=== PATIENT | male | born 1975 | race Caucasian/White ===

== ENCOUNTER → 2019-05-05 | Outpatient (CLI) | payer OTHER ==
[~2019-05-05] MED LIST: COLC.6 PO; CRUTCH3 USE; HYDACE5 PO; NAPR500 PO
[2019-05-05 15:47] LABS: BASOPHILS ABSOLUTE AUTO 0.04 K/mm3 (0.00-0.23); BASOPHILS PERCENT AUTO 0 % (0-2); EOSINOPHILS ABSOLUTE AUTO 0.15 K/mm3 (0.00-0.68); EOSINOPHILS PERCENT AUTO 2 % (0-6); Hematocrit 43.1 % (37.0-53.0); Hemoglobin 14.2 g/dL (13.5-17.5); IMMATURE GRAN ABSOLUTE AUTO 0.02 K/mm3 (0.00-0.10); IMMATURE GRAN PERCENT AUTO 0 % (0-1); LYMPHOCYTES ABSOLUTE AUTO 1.18 K/mm3 (0.84-5.20); LYMPHOCYTES PERCENT AUTO 13 % (21-46); MONOCYTES ABSOLUTE AUTO 1.04 K/mm3 (0.16-1.47); MONOCYTES PERCENT AUTO 11 % (4-13); Mean Corpuscular HGB 29.8 pg (26.0-34.0); Mean Corpuscular HGB Conc 32.9 g/dL (31.5-36.5); Mean Corpuscular Volume 91 fL (80-100); Mean Platelet Volume 10.3 fL (9.1-12.4); NEUTROPHILS PERCENT AUTO 74 % (41-73); Platelet Count 304 K/mm3 (150-400); RDW Coefficient Variation 12.7 % (11.7-14.2); Red Blood Cell Count 4.76 M/mm3 (4.30-5.90); White Blood Cell Count 9.33 K/mm3 (4.00-11.30)
[2019-05-05 15:54] LABS: Anion Gap 4 mmol/L (6-16); Blood Urea Nitrogen 11 mg/dL (8-24); Bun/Creatinine Ratio 11.1 (12.0-20.0); CO2, Blood 30 mmol/L (21-32); Chloride, Blood 103 mmol/L (98-108); Creatinine, Blood 0.99 mg/dL (0.60-1.20); Glomerular Filtration Rate >60 (60-); Glucose, Blood 84 mg/dL (70-99); Potassium, Blood 3.9 mmol/L (3.5-5.5); Sodium, Blood 137 mmol/L (136-145); Uric Acid, Blood 4.5 mg/dL (3.5-7.2)
== END | disposition home or self-care (01) ==
LOC: LAB SHORT 15:42 → LAB EV 15:42
PROVIDERS: Family Medicine
DX: M10.9 Gout, unspecified (principal)
CPT/HCPCS: 80048; 84550; 85025

== ENCOUNTER 2023-09-03 20:48 | Inpatient (IN) | payer OTHER ==
[~2023-09-03] VITALS: Ht 190.5 cm; Wt 99.1 kg
[2023-09-03 21:39] LABS: BASOPHILS ABSOLUTE AUTO 0.02 K/mm3 (0.00-0.23); BASOPHILS PERCENT AUTO 0 % (0-2); EOSINOPHILS ABSOLUTE AUTO 0.08 K/mm3 (0.00-0.68); EOSINOPHILS PERCENT AUTO 1 % (0-6); Hematocrit 37.3 % (37.0-53.0); Hemoglobin 12.4 g/dL (13.5-17.5); IMMATURE GRAN ABSOLUTE AUTO 0.01 K/mm3 (0.00-0.10); IMMATURE GRAN PERCENT AUTO 0 % (0-1); LYMPHOCYTES ABSOLUTE AUTO 1.09 K/mm3 (0.84-5.20); LYMPHOCYTES PERCENT AUTO 13 % (21-46); MONOCYTES ABSOLUTE AUTO 0.84 K/mm3 (0.16-1.47); MONOCYTES PERCENT AUTO 10 % (4-13); Mean Corpuscular HGB Conc 33.2 g/dL (31.5-36.5); Mean Corpuscular Volume 87 fL (80-100); Mean Platelet Volume 10.2 fL (9.1-12.4); NEUTROPHILS ABSOLUTE AUTO 6.54 K/mm3 (1.96-9.15); NEUTROPHILS PERCENT AUTO 76 % (41-73); Platelet Count 253 K/mm3 (150-400); RDW Coefficient Variation 13.7 % (11.7-14.2); RDW Standard Deviation 44.1 fL (35.1-46.3); Red Blood Cell Count 4.27 M/mm3 (4.30-5.90); White Blood Cell Count 8.58 K/mm3 (4.00-11.30)
[2023-09-03 21:58] LABS: Albumin, Blood 3.8 g/dL (3.4-5.0); Bilirubin, Total 0.8 mg/dL (0.1-1.0); Calcium, Blood 8.8 mg/dL (8.5-10.1); Creatinine, Blood 0.65 mg/dL (0.60-1.20); Total Protein, Blood 7.8 g/dL (6.4-8.2)
[2023-09-04] MEDS ORDERED: Amoxicillin/Clavulanate K 875 MG Tab PO ONE (02:05)
[2023-09-04] MEDS ORDERED: AMOCLA875 PO (02:25)
[2023-09-04] MEDS ORDERED: Acetaminophen 650 MG Supp PR PRN (03:45)
[2023-09-04] MEDS ORDERED: Acetaminophen 325 MG TABLET PO PRN (03:45)
[2023-09-04] MEDS ORDERED: Ondansetron HCl 2 MG / ML 2ML Vial IV PRN (03:50)
[2023-09-04] MEDS ORDERED: Potassium Chloride 40 MEQ in NS 250 ML IV ONE (03:55)
[2023-09-04] MEDS ORDERED: Lactated Ringer's 1,000 ML IV SCH (04:00)
[2023-09-04] MEDS ORDERED: NS 250 ML IV PRN (04:30)
[2023-09-04 05:26] VITALS: BP 138/80
[2023-09-04 05:56] LABS: U Amphetamine Screen DETECTED; U Barbituate Screen Not Detected; U Benzodiazapine Screen Not Detected; U Buprenorphine Screen Not Detected; U Cannabinoids Screen Not Detected; U Cocaine Screen Not Detected; U Methadone Screen Not Detected; U Methamphetamine Screen DETECTED; U Opiates Screen Not Detected; U Oxycodone Screen Not Detected; U Phencyclidine Screen Not Detected
[2023-09-04 06:23] LABS: BASOPHILS ABSOLUTE AUTO 0.02 K/mm3 (0.00-0.23); BASOPHILS PERCENT AUTO 0 % (0-2); EOSINOPHILS ABSOLUTE AUTO 0.02 K/mm3 (0.00-0.68); EOSINOPHILS PERCENT AUTO 0 % (0-6); Hematocrit 33.6 % (37.0-53.0); Hemoglobin 11.2 g/dL (13.5-17.5); IMMATURE GRAN ABSOLUTE AUTO 0.04 K/mm3 (0.00-0.10); IMMATURE GRAN PERCENT AUTO 0 % (0-1); LYMPHOCYTES ABSOLUTE AUTO 1.22 K/mm3 (0.84-5.20); LYMPHOCYTES PERCENT AUTO 12 % (21-46); MONOCYTES ABSOLUTE AUTO 1.06 K/mm3 (0.16-1.47); MONOCYTES PERCENT AUTO 11 % (4-13); Mean Corpuscular HGB 28.9 pg (26.0-34.0); Mean Corpuscular HGB Conc 33.3 g/dL (31.5-36.5); Mean Corpuscular Volume 87 fL (80-100); Mean Platelet Volume 10.5 fL (9.1-12.4); NEUTROPHILS ABSOLUTE AUTO 7.72 K/mm3 (1.96-9.15); NEUTROPHILS PERCENT AUTO 77 % (41-73); Platelet Count 242 K/mm3 (150-400); RDW Coefficient Variation 13.6 % (11.7-14.2); RDW Standard Deviation 42.5 fL (35.1-46.3); Red Blood Cell Count 3.88 M/mm3 (4.30-5.90); White Blood Cell Count 10.08 K/mm3 (4.00-11.30)
[2023-09-04 06:44] LABS: Albumin, Blood 3.3 g/dL (3.4-5.0); Albumin/Globulin Ratio 0.9 (0.8-1.8); Bilirubin, Total 1.2 mg/dL (0.1-1.0); Bun/Creatinine Ratio 13.2 (12.0-20.0); Calcium, Blood 8.4 mg/dL (8.5-10.1); Creatinine, Blood 0.53 mg/dL (0.60-1.20); Globulin, Blood 3.6 g/dL (2.2-4.0); Magnesium, Blood 1.9 mg/dL (1.6-2.4); Potassium, Blood 2.8 mmol/L (3.5-5.5); Total Protein, Blood 6.9 g/dL (6.4-8.2)
--- NOTE | 2023-09-04 07:12 | NUR ---
ASSUMED CARE: PT RESTING IN BED AT THIS TIME. SWELLING NOTED TO LEFT FACE. IV POTASSIUM INFUSING. CALL LIGHT IN REACH. DENIES NEEDS OR CONCERNS AT THIS TIME.
--- NOTE | 2023-09-04 07:14 | NUR ---
SHIFT SUMMARY NOC PT A/O X 4. PLEASANT AND COOPERATIVE WITH CARE. VSS. ADMIT FROM ED WITH DX OF COPD EXACERBATION. PT CAME UP ON O2 2.5L/NC AND IS RA BASELINE. PT USES CPAP AT NIGHT WITH 4L BLEED IN. PT ON BEDREST DUE TO SEVERE DYSPNEA WITH MOVEMENT. PT HAS STAGE ON PI ON COCCYX AND DIABETIC FOOT ULCER THAT IS SCABBED ON L FOOT, BOTH ARE COVERED WITH MEPILEX C/D/I. HEEL PROTECTORS ON FOR PREVENTION OF PI. PT ON TELE SINUS RHYTHM @ 84 BPM. PT CURRENTLY RESTING WITH BED IN LOWEST POSITION, AND CALL LIGHT WITHIN REACH.
--- NOTE | 2023-09-04 07:20 | NUR ---
SHIFT SUMMARY NOC ADMIT FROM ED WITH ABCESS IN LEFT SIDE OF FACE. PT A/O X 4, INDEPENDENT/CONTINENT, ON RA. HAS TOX UA PENDING. PT MEDICATED FOR PAIN AND LOW GRADE FEVER WITH PO TYLENOL, NO SWALLOWING ISSUES NOTED. PT RECEIVING IV ABX FOR INFECTION, AND KCL 40 MQ IV X 1 FOR K 3.0. LR @ 100 ML/HR ORDERED. PT CURRENTLY RESTING WITH BED IN LOWEST POSITION, AND CALL LIGHT WITHIN REACH.
[2023-09-04] MEDS ORDERED: Potassium Chloride 20 MEQ TabCR PO ONE (07:45)
[2023-09-04] MEDS ORDERED: Clindamycin 600mg in D5W 50 ML IV SCH (08:00)
--- NOTE | 2023-09-04 08:04 | NUR ---
CALL TO DR HARDEN TO VERIFY THAT HE WANTED PO POTASSIUM WELL IV POTASSIUM. DR RIVERA. ALSO RECIEVED DIET ORDER. NO FURTHER NEEDS OR CONCERNS AT THIS TIME.
[2023-09-04] MEDS ORDERED: Lactobacil 2-S.Thermo-Bifido 1 1 Cap PO SCH (09:00)
[2023-09-04] MEDS ORDERED: Enoxaparin 40 MG/0.4 ML SYR SC SCH (09:00)
[2023-09-04] MEDS ORDERED: Pantoprazole Sodium 20 MG Tab PO SCH (10:00)
[2023-09-04] MEDS ORDERED: MethylPREDNISolone Sod Succ 125 MG Vial IV ONE (10:00)
[2023-09-04] MEDS ORDERED: Ampicillin Sod/Sulbactam Sod 3 GM in NS 100 ML IV SCH (10:00)
[2023-09-04 10:05] VITALS: BP 108/62
[2023-09-04 15:05] VITALS: BP 121/58
--- NOTE | 2023-09-04 18:06 | NUR ---
SHIFT SUMMARY: PT RESTING MAJORITY OF THE DAY WITH BRADYCARDIA NOTED WITH SLEEP. PT ASYMPTOMATIC OTHERWISE. INDEPENDENT IN ROOM. DOSE OF STEROID GIVEN FOR SWELLING. PLANS FOR DC HOME TOMORROW. NO FURTHER NEEDS OR CONCERNS AT THIS TIME.
[2023-09-04 19:14] VITALS: BP 139/83
[2023-09-05 04:26] VITALS: BP 136/79
[2023-09-05 05:35] LABS: Calcium, Blood 8.7 mg/dL (8.5-10.1); Creatinine, Blood 0.55 mg/dL (0.60-1.20); Potassium, Blood 3.3 mmol/L (3.5-5.5)
--- NOTE | 2023-09-05 06:00 | NUR ---
SHIFT SUMMARY NOC PT A/O X 4. PLEASANT AND COOPERATIVE WITH CARE. VSS. NO ACUTE CHANGES TO REPORT. PT SWELLING CONTINUES TO DECREASE WITH IV ABX TREATMENT. PT MEDICATED FOR PAIN RIGHT AFTER SHIFT CHANGE. PT HAS SLEPT FOR ENTIRETY OF SHIFT. PT HAS INFUSION OF LR @ 100 ML/HR CONTINOUS RUNNING. PT EXPECTED TO DISCHARGE HOME TO MOTHER'S HOUSE TODAY AND FOLLOW UP WITH DENTAL TO HAVE SURGICAL INTERVENTION FOR ABCESS. PT CURRENTLY RESTING WITH BED IN LOWEST POSITION, AND CALL LIGHT WITHIN REACH.
[2023-09-05] MEDS ORDERED: Potassium Chloride 20 MEQ TabCR PO ONE (07:35)
[2023-09-05 07:43] VITALS: BP 135/82
[2023-09-05] MEDS ORDERED: VISBIOME 112.51 EACH PO (13:44)
[2023-09-05] MEDS ORDERED: AMOCLA875 PO (13:44)
[2023-09-05] MEDS ORDERED: Acetaminophen650 M1 PO (13:44)
--- NOTE | 2023-09-05 14:50 | NUR ---
A&Ox4. PLEASANT AND COOPERATIVE WITH CARE. CALLS APPROPRIATELY AND IS ABLE TO ADVOCATE NEEDS EFFECTIVELY. AMBULATES INDEPENDENTLY. SHOWERED TODAY AND IV REMOVED PRIOR TO DISCHARGE. STILL WITH SWELLING IN LEFT SIDE OF FACE UP TO EYE, BUT STATES IT'S LESS THAN IT WAS PRIOR TO RECEIVING ABx. BOWEL MOVEMENT TODAY. PAIN 4/10 NOT RELIEVED WITH APAP AND REFUSED OFFER OF ICE PACK. INSTRUCTED TO FOLLOW-UP WITH [facility] AND PCP. PT INDEPENDENTLY LEFT THE FLOOR INDEPENDENTLY AMBULATING AND LEFT FLOOR WITH DISCHARGE PACKET AND BELONGINGS @ [id number].
== END 2023-09-05 14:50 | disposition home or self-care (01) | DRG 602 ==
LOC: ER 20:48 → MEDS 20:49
PROVIDERS: Internal Medicine; Student in an Organized Health Care Education/Training Program; ADMIT Student in an Organized Health Care Education/Training Program
DX: L02.01 Cutaneous abscess of face (principal); G92.8 Other toxic encephalopathy; Z59.00 Homelessness unspecified; L03.211 Cellulitis of face; E87.6 Hypokalemia; F15.10 Other stimulant abuse, uncomplicated; B19.20 Unspecified viral hepatitis C without hepatic coma; J45.909 Unspecified asthma, uncomplicated; F17.210 Nicotine dependence, cigarettes, uncomplicated; K02.9 Dental caries, unspecified; Z79.899 Other long term (current) drug therapy
CPT/HCPCS: 36415; 70491; 80048; 80053; 83735; 85025; 94760; 96365; 96372; 96375; 99284-25; A9270; C9113; G0378; J0295; J1650; J2919; J3480; J7050; J7120; Q9967

== ENCOUNTER 2024-04-08 01:29 | Emergency (ER) | payer OTHER ==
[~2024-04-08] VITALS: Ht 190.5 cm; Wt 100.7 kg
[~2024-04-08 01:29] MED LIST changes: +AMOCLA875 PO; +Acetaminophen650 M1 PO; +VISBIOME 112.51 EACH PO
[2024-04-08 01:38] VITALS: BP 127/85
[2024-04-08 02:47] LABS: BASOPHILS ABSOLUTE AUTO 0.03 K/mm3 (0.00-0.23); BASOPHILS PERCENT AUTO 0 % (0-2); EOSINOPHILS ABSOLUTE AUTO 0.11 K/mm3 (0.00-0.68); EOSINOPHILS PERCENT AUTO 1 % (0-6); Hematocrit 36.2 % (37.0-53.0); Hemoglobin 11.9 g/dL (13.5-17.5); IMMATURE GRAN ABSOLUTE AUTO 0.02 K/mm3 (0.00-0.10); IMMATURE GRAN PERCENT AUTO 0 % (0-1); LYMPHOCYTES ABSOLUTE AUTO 1.51 K/mm3 (0.84-5.20); LYMPHOCYTES PERCENT AUTO 16 % (21-46); MONOCYTES ABSOLUTE AUTO 1.39 K/mm3 (0.16-1.47); MONOCYTES PERCENT AUTO 15 % (4-13); Mean Corpuscular HGB 28.2 pg (26.0-34.0); Mean Corpuscular HGB Conc 32.9 g/dL (31.5-36.5); Mean Corpuscular Volume 86 fL (80-100); Mean Platelet Volume 9.7 fL (9.1-12.4); NEUTROPHILS ABSOLUTE AUTO 6.51 K/mm3 (1.96-9.15); NEUTROPHILS PERCENT AUTO 68 % (41-73); Platelet Count 363 K/mm3 (150-400); RDW Coefficient Variation 12.8 % (11.7-14.2); Red Blood Cell Count 4.22 M/mm3 (4.30-5.90); White Blood Cell Count 9.57 K/mm3 (4.00-11.30)
[2024-04-08 03:00] LABS: Albumin/Globulin Ratio 0.7 (0.8-1.8); Bilirubin, Total 0.6 mg/dL (0.1-1.0); Bun/Creatinine Ratio 16.1 (12.0-20.0); Calcium, Blood 8.6 mg/dL (8.5-10.1); Creatinine, Blood 0.87 mg/dL (0.60-1.20); Globulin, Blood 4.4 g/dL (2.2-4.0); Potassium, Blood 3.6 mmol/L (3.5-5.5); Total Protein, Blood 7.4 g/dL (6.4-8.2)
[2024-04-08] MEDS ORDERED: Clindamycin 600mg in D5W 50 ML IV ONE (03:00)
[2024-04-08] MEDS ORDERED: CLIN300 PO (04:44)
== END 2024-04-08 04:58 | disposition home or self-care (01) ==
LOC: ER 01:29
PROVIDERS: Emergency Medicine
DX: L03.116 Cellulitis of left lower limb (principal); J45.909 Unspecified asthma, uncomplicated
CPT/HCPCS: 80053; 85025; 93971; 96365; 99284-25